=== PATIENT | female | born 1965 | race African-American/Black ===

== ENCOUNTER 2023-06-07 08:14 | Emergency (ER) | payer MEDICAID ==
[~2023-06-07] VITALS: Ht 152.4 cm; Wt 59.0 kg
[2023-06-07 08:15] VITALS: PULSE 81; RESP 15
[2023-06-07 08:17] VITALS: O2SAT 0
[2023-06-07 08:46] VITALS: BP 0/0; PULSE 0; RESP 0; TEMP 97.7
[2023-06-07] MEDS ORDERED: LIDOCAINE HCL 1% 10 MG/ML 10ML VIAL ONE (08:53)
== END 2023-06-07 11:07 ==
LOC: ER 08:25
DX: I46.9 Cardiac arrest, cause unspecified (principal); I10 Essential (primary) hypertension; E78.00 Pure hypercholesterolemia, unspecified
CPT/HCPCS: 82962; 92950 ×2; 31500 ×2; 99291; Z7610 ×4; 94002; J3490